=== PATIENT | female | born 1980 | race Caucasian/White ===

== ENCOUNTER 2018-05-07 08:11 | Day surgery (SDC) | payer OTHER ==
[~2018-05-07] VITALS: Ht 167.6 cm; Wt 78.5 kg
[~2018-05-07 08:11] MED LIST: Hair, Skin & N1 EACH PO
== END 2018-05-07 10:40 | disposition home or self-care (01) ==
LOC: ORSCMMR 08:11 → ORD 09:00 → ORSCMMR 10:40
PROVIDERS: Internal Medicine Gastroenterology
PROC: 0DJD8ZZ Inspection of Lower Intestinal Tract, Via Natural or Artificial Opening Endoscopic (ICD-10-PCS; principal; 2018-05-07 09:00)
DX: Z12.11 Encounter for screening for malignant neoplasm of colon (principal); Z80.0 Family history of malignant neoplasm of digestive organs
CPT/HCPCS: J7030